=== PATIENT | male | born 1995 | race Caucasian/White ===

== ENCOUNTER 2022-10-11 13:00 | Day surgery (SDC) | payer OTHER, SELFPAY ==
--- NOTE | 2022-10-11 | PATH_ITS ---
[facility] Accession Number: [id number] No. of containers..01 Tissue . 01 Material submitted: . colon - RANDOM COLON BIOPSY . 01 Clinical history: . R/O MICRO ULCERATIVE COLITIS . 01 Diagnosis: Random Colon, Biopsy: Colonic mucosa with no diagnostic abnormality. Negative for active, chronic, and microscopic colitis. Negative for dysplasia and malignancy. . MRV 10/17/2022 1246 Local . 01 Electronically signed: . Jesús Milner MD, PhD, Pathologist NPI- [id number] . 01 Gross description: . RANDOM COLON BIOPSY: Received in formalin are 4 fragment(s) of woodward, soft tissue measuring 0.1 x 0.1 x 0.1 cm to 0.4 x 0.1 x 0.1 cm submitted entirely in 1 cassette(s) /DIANA 10/16/20228 Local . 01 Pathologist provided ICD-10: R19.4 . 01 CPT . 803915 Performed at: 01 [facility] [address] [place] [address], [place], [place] [id number] MD Aman Moore MD Phone: [phone]
[2022-10-11 13:26] VITALS: BP 141/92; PULSE 66; RESP 17; TEMP 36.1; O2SAT 99; BMI 34.0
[2022-10-11] MEDS: LACTATED RINGERS 1,000 ML 84 ML IV (13:51)
--- NOTE | 2022-10-11 14:03 | PM.HP.1 ---
History of Present Illness History of Present Illness Date Patient Seen: 10/11/22 Chief complaint: Dx Colonoscopy Narrative: Change in bowel movement with urgency and looser stools PFS Social History household members: none Smoking Status: Current every day smoker alcohol intake: current Meds Home Medications and Allergies Allergies Allergy/AdvReac Type Severity Reaction Status Date / Time No Known Drug Allergies Allergy Verified 10/11/22 13:25 Exam Vital Signs (past 8 hours): - 10/11/22 13:26 Temperature 97.0 F L Pulse Rate 66 Respiratory Rate 17 Blood Pressure 141/92 H Pulse Oximetry 99 Oxygen Delivery Method Room Air Oxygen Delivery Method Room Air Narrative Exam Narrative: Oropharynx free of lesions Chest clear to auscultation percussion Cardiac exam reveals no S3 or murmur Assessment & Plan Assessment & Plan narrative: Change in bowel movements and greater density rule out proctosigmoiditis. Risks, benefits, alternatives have been explained.
--- NOTE | 2022-10-11 14:04 | PM.OP.COLON ---
Operative Date/Time/Diagnoses Date of procedure: 10/11/22 Pre-op diagnosis: See indication and findings Procedure & Clinicians Study performed: Colonoscopy Indications: Change of bowel movements and urgency Surgeon: Doug Guerrero Procedure Notes Procedure in detail: After informed consent was obtained the patient was placed in left lateral decubitus position. The video colonoscope was introduced the rectum slowly advanced cecum. Preparation was good. On slow withdrawal mucosa was carefully examined. The scope was removed. The patient tolerated procedure well. Blood loss none Complications none Sedation mac Findings 1. Moderate internal hemorrhoids 2. Otherwise completely normal colonoscopy to cecum. Random biopsies were taken Will be in touch regarding his biopsies. If direct follow-up in the office is required he can follow up with Dr. Herndon
[2022-10-11 15:07] VITALS: BP 110/74; PULSE 68; RESP 18; TEMP 36.3; O2SAT 97
[2022-10-11 15:12] VITALS: BP 108/71; PULSE 59; RESP 18; O2SAT 98
[2022-10-11 15:22] VITALS: BP 117/81; PULSE 52; RESP 17; O2SAT 98
[2022-10-11 15:27] VITALS: BP 126/87; PULSE 56; RESP 17; O2SAT 98
== END 2022-10-11 16:10 | disposition home or self-care (01) ==
PROVIDERS: PCP Student in an Organized Health Care Education/Training Program; Referring Provider Internal Medicine Gastroenterology; Visit Provider Internal Medicine Gastroenterology
PROC: 0DJD8ZZ Inspection of Lower Intestinal Tract, Via Natural or Artificial Opening Endoscopic (ICD-10-PCS; CPT 45378; principal; 2022-10-11 14:00)
DX: R19.4 Change in bowel habit (principal); R15.2 Fecal urgency; K64.8 Other hemorrhoids
CPT/HCPCS: 45380; J2704